=== PATIENT | female | born 1945 | race Caucasian/White ===

== ENCOUNTER 2017-11-27 21:34 | Inpatient (IN) | payer OTHER, BC ==
[~2017-11-27] VITALS: Ht 175.3 cm; Wt 96.2 kg
[~2017-11-27 21:34] MED LIST: ASCORBIC ACID500 M3 PO; ASPERCREME76.5 GM TP; CARDIZEM CD120 M1 PO; CELEBREX200 MG PO; COZAAR25 MG PO; FISH OIL 1,0001 EA10 PO; FOSAMAX70 MG PO; LEVOTHYROXINE150 MCG PO; LEXAPRO20 MG PO; NASACORT10.8 ML BOTH NARES; PREVACID30 MG PO; PROAIR HFA8.5 GM IH; SIMVASTATIN10 MG PO; TUMS500 MG PO; TYLENOL ARTHRI650 MG PO; VITAMIN D31000 UNI2 PO; ZYRTEC10 M3 PO
[2017-11-28 12:51] VITALS: BP 119/66
[2017-11-28 20:11] VITALS: BP 168/75
[2017-11-28 21:25] LABS: HEMATOCRIT 37.3 % (36.0-46.0); MCH 34.2 PG (29.0-34.0); MCHC 34.9 G/DL (30.0-36.0); MCV 98.2 FL (83-99); PLATELET COUNT 240 K/uL (156-360); RBC DIS.WIDTH-CV 13.6 % (11.8-14.6); RBC DIS.WIDTH-SD 49.1 % (39-53); WHITE BLOOD COUNT 11.9 K/uL (4.1-10.2)
[2017-11-28 21:34] LABS: CHLORIDE 106 mEq/L (99-109); POTASSIUM 3.8 mEq/L (3.7-5.4); SODIUM 141 mEq/L (136-147)
[2017-11-28 21:36] LABS: GLUCOSE 207 mg/dL (70-99)
[2017-11-28 21:40] LABS: CREATININE 0.8 mg/dL (0.6-1.3); GFR ESTIMATE (CALCULATED) > 59 mL/min/
[2017-11-28 21:41] LABS: UREA NITROGEN (BUN) 16 mg/dL (9-23)
[2017-11-28 23:50] VITALS: BP 159/76
[2017-11-29 04:03] VITALS: BP 148/70
[2017-11-29 06:33] LABS: HEMATOCRIT 38.9 % (36.0-46.0); HEMOGLOBIN 12.6 G/DL (11.9-15.5); MCH 33.1 PG (29.0-34.0); MCHC 32.4 G/DL (30.0-36.0); MCV 102.1 FL (83-99); PLATELET COUNT 269 K/uL (156-360); RBC DIS.WIDTH-CV 13.9 % (11.8-14.6); RBC DIS.WIDTH-SD 52.6 % (39-53); RED BLOOD COUNT 3.81 M/uL (3.80-5.20)
[2017-11-29 06:56] LABS: CHLORIDE 102 MEQ/L (99-109); CREATININE 0.9 MG/DL (0.6-1.3); GFR ESTIMATE (CALCULATED) > 59 mL/min/; GLUCOSE 177 mg/dL (70-99); POTASSIUM 4.5 MEQ/L (3.7-5.4); SODIUM 141 MEQ/L (136-147); UREA NITROGEN (BUN) 17 mg/dL (9-23)
[2017-11-29 07:51] VITALS: BP 130/59
[2017-11-29 11:40] VITALS: BP 108/53
[2017-11-29 15:39] VITALS: BP 118/56
[2017-11-29 16:27] LABS: ALBUMIN 3.6 G/DL (3.2-4.8); CHLORIDE 99 MEQ/L (99-109); CREATININE 0.8 MG/DL (0.6-1.3); GFR ESTIMATE (CALCULATED) > 59 mL/min/; GLUCOSE 124 mg/dL (70-99); PHOSPHORUS 2.3 mg/dL (2.5-4.9); SODIUM 134 MEQ/L (136-147); UREA NITROGEN (BUN) 15 mg/dL (9-23)
[2017-11-29 19:17] VITALS: BP 160/72
[2017-11-29 21:39] VITALS: BP 146/63
[2017-11-30 00:04] VITALS: BP 146/67
[2017-11-30 04:20] VITALS: BP 149/80
[2017-11-30 06:19] LABS: HEMATOCRIT 32.8 % (36.0-46.0); HEMOGLOBIN 10.8 G/DL (11.9-15.5); MCH 32.9 PG (29.0-34.0); MCHC 32.9 G/DL (30.0-36.0); PLATELET COUNT 216 K/uL (156-360); RBC DIS.WIDTH-CV 13.9 % (11.8-14.6); RBC DIS.WIDTH-SD 51.7 % (39-53); RED BLOOD COUNT 3.28 M/uL (3.80-5.20); WHITE BLOOD COUNT 8.7 K/uL (4.1-10.2)
[2017-11-30 06:40] LABS: CHLORIDE 105 MEQ/L (99-109); CREATININE 0.8 MG/DL (0.6-1.3); GFR ESTIMATE (CALCULATED) > 59 mL/min/; GLUCOSE 123 mg/dL (70-99); POTASSIUM 4.1 MEQ/L (3.7-5.4); UREA NITROGEN (BUN) 11 mg/dL (9-23)
[2017-11-30 06:41] LABS: SODIUM 141 MEQ/L (136-147)
[2017-11-30 07:38] VITALS: BP 121/57
[2017-11-30] MEDS ORDERED: ROXICODONE5 MG PO (10:18)
== END 2017-11-30 13:20 | disposition home or self-care (01) | DRG 741 ==
LOC: ENRESERV 21:34 → 2SOUTH 11-28 12:09 → 2EASTP 11-28 12:21 → 2SOUTH 11-28 15:04 → 2EASTP 11-28 20:03
PROVIDERS: Nurse Practitioner Acute Care; Obstetrics & Gynecology Gynecologic Oncology
DX: C54.1 Malignant neoplasm of endometrium (principal); N88.2 Stricture and stenosis of cervix uteri; G47.30 Sleep apnea, unspecified; I10 Essential (primary) hypertension; K21.9 Gastro-esophageal reflux disease without esophagitis; N39.41 Urge incontinence
CPT/HCPCS: 36415; 80048; 80069; 85027; 86850; 86900; 86901; 86920; 88305; 88309; 94760; 94799; J0690; J1100; J1170; J1650; J2405; J2550; J2765; J3010; Q0175